=== PATIENT | male | born 1965 | race African-American/Black ===

== ENCOUNTER 2021-02-23 19:16 | Emergency (ER) | payer OTHER ==
[~2021-02-23] VITALS: Ht 182.9 cm; Wt 85.0 kg
[2021-02-23] MEDS ORDERED: ONDANSETRON HCL 4MG/2ML INJ IV STA ×2 (20:19→22:42)
[2021-02-23] MEDS ORDERED: SODIUM CHLORIDE 0.9% 1,000 ML IV ONE (20:30)
[2021-02-23 20:40] LABS: BASOPHILS % 0.6 % (0.0-2.0); EOSINOPHILS % 3.1 % (0.0-5.0); HEMATOCRIT. 38.1 % (42.0-52.0); LYMPHOCYTES % 34.3 % (20.0-50.0); MEAN CORPUSCULAR HEMOGLOBIN 33.1 pg (28.0-32.0); MEAN CORPUSCULAR VOLUME 96.9 fL (80.0-94.0); MEAN PLATELET VOLUME 6.9 fl (7.4-10.4); MONOCYTES % 10.8 % (2.0-8.0); NEUTROPHILS % 51.2 % (40.0-76.0); PLATELET 178 x1000/uL (130-400); RED BLOOD CELL COUNT 3.93 mill/uL (4.7-6.1); RED CELL DISTRIBUTION WIDTH 15.3 % (11.6-14.6)
[2021-02-23 20:44] LABS: CHLORIDE 106 mEq/L (98-107)
[2021-02-23] MEDS ORDERED: MORPHINE SULFATE 4 MG/ML CPJ (NOT FOR IM USE) IV STA (22:42)
[2021-02-23 22:52] LABS: CLARITY URINE CLEAR (CLEAR); COLOR URINE YELLOW (YELLOW); KETONES URINE NEGATIVE (NEGATIVE); LEUKOCYTE ESTERASE URINE 1+ (NEGATIVE); NITRITE URINE POSITIVE (NEGATIVE); OCCULT BLOOD URINE NEGATIVE (NEGATIVE); PROTEIN URINE NEGATIVE (NEGATIVE); SPECIFIC GRAVITY URINE 1.016 (1.005-1.030)
[2021-02-23] MEDS ORDERED: CEFTRIAXONE 1 G PREMIX 50 ML IV ONE (23:45)
[2021-02-24] MEDS ORDERED: ONDA8TAB13 MT (00:07)
[2021-02-24] MEDS ORDERED: NITR-87 MT (00:07)
[2021-02-24] MEDS ORDERED: TAMS-11 MT (00:07)
[2021-02-24 01:00] VITALS: BP 120/82
== END 2021-02-24 01:05 | disposition home or self-care (01) ==
LOC: ER 19:16
DX: R33.9 Retention of urine, unspecified (principal); R11.2 Nausea with vomiting, unspecified; N39.0 Urinary tract infection, site not specified; J45.909 Unspecified asthma, uncomplicated; I10 Essential (primary) hypertension
CPT/HCPCS: 36415; 74176; 80053; 81003; 83690; 85025; 87077; 87086; 87186; 96360; 99284; J7030; A4315

== ENCOUNTER 2024-01-02 18:30 | Emergency (ER) | payer MEDICAID, OTHER ==
[~2024-01-02] VITALS: Ht 167.6 cm; Wt 63.0 kg
[~2024-01-02 18:30] MED LIST: NITR-87 MT; ONDA8TAB13 MT; TAMS-11 MT
[2024-01-02 18:34] VITALS: O2SAT 99
[2024-01-02] MEDS ORDERED: TOPUD PO (20:26)
[2024-01-02 20:58] VITALS: BP 133/93; PULSE 92; RESP 13; TEMP 98.2
== END 2024-01-02 21:03 | disposition home or self-care (01) ==
LOC: ER 18:30
DX: S09.90XA Unspecified injury of head, initial encounter (principal); J45.909 Unspecified asthma, uncomplicated; I10 Essential (primary) hypertension; W18.39XA Other fall on same level, initial encounter; Y93.89 Activity, other specified; Y92.89 Other specified places as the place of occurrence of the external cause; Y99.8 Other external cause status
CPT/HCPCS: 99284